=== PATIENT | female | born 1965 | race Two or more races ===

== ENCOUNTER 2023-08-02 12:23 | Emergency (ER) | payer OTHER ==
[~2023-08-02] VITALS: Ht 154.9 cm; Wt 54.3 kg
[2023-08-02 12:35] VITALS: BP 145/78; PULSE 96; RESP 18; O2SAT 99
== END 2023-08-02 14:51 | disposition left against medical advice (07) ==
LOC: ER 12:23
DX: S81.811A Laceration without foreign body, right lower leg, initial encounter (principal); Z53.21 Procedure and treatment not carried out due to patient leaving prior to being seen by health care provider; W25.XXXA Contact with sharp glass, initial encounter; Y93.89 Activity, other specified; Y92.89 Other specified places as the place of occurrence of the external cause; Y99.8 Other external cause status
CPT/HCPCS: 82962